=== PATIENT | female | born 1985 | race Caucasian/White ===

== ENCOUNTER 2023-01-28 19:32 | Emergency (ER) | payer OTHER ==
[2023-01-28 19:42] VITALS: BP 115/59; PULSE 75; RESP 18; TEMP 98.9; BMI 26.9
[2023-01-28] MEDS ORDERED: KETOROLAC TROMETHAMINE 30 MG/1 ML VIAL IM ONE (20:46)
[2023-01-28] MEDS ORDERED: KETOROLAC TROMETHAMINE 30 MG/1 ML VIAL ONE (20:47)
[2023-01-28] MEDS ORDERED: predniSONE 20 MG TABLET (UD) PO ONE (21:48)
[2023-01-28] MEDS ORDERED: predniSONE 20 MG TABLET (UD) ONE (21:50)
== END 2023-01-28 22:49 | disposition home or self-care (01) ==
LOC: JERFT 19:32
PROC: 3E0233Z Introduction of Anti-inflammatory into Muscle, Percutaneous Approach (ICD-10-PCS; principal; 2023-01-28)
DX: R51.9 Headache, unspecified (principal); M79.10 Myalgia, unspecified site; J02.9 Acute pharyngitis, unspecified; J06.9 Acute upper respiratory infection, unspecified; Z20.822 Contact with and (suspected) exposure to COVID-19
CPT/HCPCS: 0241U-QW; 71046-TC-FY; 99284-25